=== PATIENT | female | born 1990 | race Caucasian/White ===

== ENCOUNTER 2018-10-06 13:26 | Emergency (ER) | payer MEDICAID ==
[2018-10-06 14:28] LABS: URINE BLOOD (Dip) POC Negative (NEGATIVE); URINE GLUCOSE (Dip) POC Negative (NEGATIVE); URINE KETONES (Dip) POC Trace (NEGATIVE); URINE LEUKOCYTE EST (Dip) POC Negative (NEGATIVE); URINE NITRITE (Dip) POC Negative (NEGATIVE); URINE TOTAL PROTEIN POC Negative (NEGATIVE)
[2018-10-06] MEDS: KETOROLAC 30 MG INJ IM (14:45)
== END 2018-10-06 14:57 | disposition home or self-care (01) ==
LOC: FTE 13:26
DX: R10.2 Pelvic and perineal pain (principal); Z87.890 Personal history of sex reassignment
CPT/HCPCS: 81003; 81025; 96372; 99284-25